=== PATIENT | female | born 2000 | race Caucasian/White ===

== ENCOUNTER 2022-01-11 13:47 | Emergency (ER) | payer BC ==
[~2022-01-11] VITALS: Ht 154.9 cm; Wt 127.0 kg
--- NOTE | 2022-01-11 14:11 | ED Abdominal Pain ---
General Chief Complaint: Abdominal/GI Problems Stated Complaint: ABD PAIN,BACK PAIN Source of Information: Patient Exam Limitations: No Limitations History of Present Illness Date Seen by Provider: January 11, 2022 Time Seen by Provider: 13:55 Initial Comments Patient is a 21-year-old female presents with midepigastric pain starting approx imately 1 hour prior to ED arrival. Pain is dull, nonradiating, nonmigratory And is moderate to severe and is worse after eating. No nausea vomiting fever chills or sweats. No constipation or diarrhea. No chest pain or shortness of breath. No urinary frequency urgency or dysuria. No other acute symptoms or complaints. Reports moderate alcohol consumption weekly. Last menstrual period was a month ago Timing/Duration: 4-6 Hours Severity/Quality: Mild, Other Location: Epigastric, Other Radiation: Other Activities at Onset: Other Modifying Factors: Improves With Other Associated Symptoms: Other Allergies and Home Medications Allergies Coded Allergies: No Known Drug Allergies (Unverified , 01/11/22) Patient Home Medication List Home Medication List Reviewed: Yes Review of Systems Review of Systems Constitutional: see HPI EENTM: See HPI Respiratory: See HPI Cardiovascular: See HPI Gastrointestinal: See HPI Genitourinary: See HPI Musculoskeletal: see HPI Skin: see HPI Psychiatric/Neurological: See HPI Endocrine: See HPI Hematologic/Lymphatic: See HPI All Other Systems Reviewed Negative Unless Noted: Yes Past Mtoevfk-Qdzgta-Scihyh Hx Patient Social History Tobacco Use?: Yes Physical Exam Vital Signs Vital Signs - First Documented 01/11/22 13:54 Temp 36.5 Pulse 84 Resp 18 B/P (MAP) 143/81 (101) Pulse Ox 98 O2 Delivery Room Air Capillary Refill : Height/Weight/BMI Height: '" Weight: lbs. oz. kg; BMI Method: General Appearance: no apparent distress HEENT: pharynx normal Respiratory: chest non-tender, lungs clear Cardiovascular: regular rate, rhythm Gastrointestinal: non tender, soft, other (Habitus limiting exam) Extremities: normal range of motion, non-tender Neurologic/Psychiatric: oriented x 3 Skin: normal color Focused Exam Sepsis Stage: Ruled Out Progress/Results/Core Measures Results/Orders Lab Results Laboratory Tests Test 01/11/22 14:00 01/11/22 14:05 Range/Units Urine Test NEGATIVE NEGATIVE White Blood Count 10.7 4.3-11.0 10^3/uL Red Blood Count 4.34 3.80-5.11 10^6/uL Hemoglobin 11.6 11.5-16.0 g/dL Hematocrit 37 35-52 % Mean Corpuscular Volume 84 80-99 fL Mean Corpuscular Hemoglobin 27 25-34 pg Mean Corpuscular Hemoglobin Concent 32 32-36 g/dL Red Cell Distribution Width 13.9 10.0-14.5 % Platelet Count 272 130-400 10^3/uL Mean Platelet Volume 9.7 9.0-12.2 fL Immature Granulocyte % (Auto) 0 % Neutrophils (%) (Auto) 69 42-75 % Lymphocytes (%) (Auto) 23 12-44 % Monocytes (%) (Auto) 7 0-12 % Eosinophils (%) (Auto) 1 0-10 % Basophils (%) (Auto) 1 0-10 % Neutrophils # (Auto) 7.5 1.8-7.8 10^3/uL Lymphocytes # (Auto) 2.4 1.0-4.0 10^3/uL Monocytes # (Auto) 0.7 0.0-1.0 10^3/uL Eosinophils # (Auto) 0.1 0.0-0.3 10^3/uL Basophils # (Auto) 0.1 0.0-0.1 10^3/uL Immature Granulocyte # (Auto) 0.0 0.0-0.1 10^3/uL Urine Color YELLOW Urine Clarity CLEAR Urine pH 7.0 5-9 Urine Specific [place] 1.025 H 1.016-1.022 Urine Protein NEGATIVE NEGATIVE Urine Glucose (UA) NEGATIVE NEGATIVE Urine Ketones NEGATIVE NEGATIVE Urine Nitrite NEGATIVE NEGATIVE Urine Bilirubin NEGATIVE NEGATIVE Urine Urobilinogen 0.2 < = 1.0 MG/DL Urine Leukocyte Esterase NEGATIVE NEGATIVE Urine RBC (Auto) NEGATIVE NEGATIVE Urine RBC 0-2 /HPF Urine WBC 2-5 /HPF Urine Squamous Epithelial Cells 5-10 /HPF Urine Crystals NONE /LPF Urine Bacteria FEW H /HPF Urine Casts NONE /LPF Urine Mucus SMALL H /LPF Urine Culture Indicated NO My Orders Orders - SAYDA DELEON DO Cbc With Automated Diff (01/11/22 13:56) Comprehensive Metabolic Panel (01/11/22 13:56) Ua Culture If Indicated (01/11/22 13:56) Hcg,Qualitative Urine (01/11/22 13:56) Lidocaine 2% Viscous 15 Ml (Xylocaine Vi (01/11/22 14:15) Antacid Suspension (Mylanta Suspension (01/11/22 14:15) Famotidine Injection (Pepcid Injection) (01/11/22 14:45) Ondansetron Injection (Zofran Injectio (01/11/22 14:45) Medications Given in ED Current Medications Medications Dose Ordered Sig/Leonarda Route Start Time Stop Time Status Last Admin Dose Admin Al Hydrox/Mg Hydrox/Simethicone 30 ml ONCE ONCE PO 01/11/22 14:15 01/11/22 14:16 DC 01/11/22 14:11 30 ML Lidocaine HCl 15 ml ONCE ONCE PO 01/11/22 14:15 01/11/22 14:16 DC 01/11/22 14:11 15 ML Vital Signs/I&O 01/11/22 13:54 Temp 36.5 Pulse 84 Resp 18 B/P (MAP) 143/81 (101) Pulse Ox 98 O2 Delivery Room Air Departure Communication (Admissions) Epigastric abdominal pain with tenderness. Significant provement with GI cocktail Pepcid and Zofran. Lab work reviewed and reassuring. Recommendations are supportive care with watchful waiting and PCP follow-up. Return precautions reviewed. Patient's verbalizes understanding and agreement with discharge instructions prior to departure. Impression Primary Impression: Midepigastric pain Additional Impression: Nausea alone Disposition: 01 HOME, SELF-CARE Condition: Stable Departure-Patient Inst. Decision time for Depature: 14:36 Referrals: LORI PEOPLES (PCP/Family) Primary Care Physician Patient Instructions: Nausea and Vomiting, Adult (DC), Abdominal Pain, Adult ED Add. Discharge Instructions: You were evaluated in the emergency department for abdominal pain and nausea. The exact cause of your symptoms has not been determined but is consistent with gastritis or inflammation of the lining of the lung. Please avoid caffeine, alcohol spicy foods and drink clear liquids only for the next 6 to 12 hours and then progressed to a bland diet as tolerated. Take newly prescribed medications as directed. Follow-up with your PCP early next week if symptoms persist. Return to the ED if new or worsening symptoms. All discharge instructions reviewed with patient and/or family. Voiced understanding. Scripts Famotidine (Pepcid) 20 Mg Tablet 20 MG PO BID, #20 TAB Prov: SAYDA DELEON DO 01/11/22 Ondansetron (Ondansetron Odt) 4 Mg Tab.rapdis 4 MG PO Q4H, #10 TAB Prov: SAYDA DELEON DO 01/11/22 SAYDA DELEON DO January 11, 2022 14:11
[2022-01-11 14:14] LABS: BASOPHILS # (AUTO) 0.1 10^3/uL (0.0-0.1); BASOPHILS % (AUTO) 1 % (0-10); EOSINOPHILS # (AUTO) 0.1 10^3/uL (0.0-0.3); EOSINOPHILS % (AUTO) 1 % (0-10); HEMATOCRIT 37 % (35-52); HEMOGLOBIN 11.6 g/dL (11.5-16.0); LYMPHOCYTES # (AUTO) 2.4 10^3/uL (1.0-4.0); LYMPHOCYTES % (AUTO) 23 % (12-44); MEAN CORPUSCULAR HEMOGLOBIN 27 pg (25-34); MEAN CORPUSCULAR HGB CONC 32 g/dL (32-36); MEAN CORPUSCULAR VOLUME 84 fL (80-99); MEAN PLATELET VOLUME 9.7 fL (9.0-12.2); MONOCYTES # (AUTO) 0.7 10^3/uL (0.0-1.0); MONOCYTES % (AUTO) 7 % (0-12); NEUTROPHILS # (AUTO) 7.5 10^3/uL (1.8-7.8); NEUTROPHILS % (AUTO) 69 % (42-75); PLATELET COUNT 272 10^3/uL (130-400); WHITE BLOOD COUNT 10.7 10^3/uL (4.3-11.0)
[2022-01-11] MEDS ORDERED: LIDOCAINE 2% VISCOUS 15 ML UDC PO ONE (14:15)
[2022-01-11] MEDS ORDERED: ANTACID SUSP 30 ML UDC (MYLANTA) PO ONE (14:15)
[2022-01-11 14:16] LABS: BILIRUBIN,URINE NEGATIVE (NEGATIVE); CLARITY,URINE CLEAR; COLOR,URINE YELLOW; GLUCOSE, URINE (UA) NEGATIVE (NEGATIVE); KETONES,URINE NEGATIVE (NEGATIVE); LEUKOCYTE ESTERASE ,URINE NEGATIVE (NEGATIVE); NITRITE,URINE NEGATIVE (NEGATIVE); PROTEIN,URINE NEGATIVE (NEGATIVE)
[2022-01-11 14:21] LABS: BACTERIA,URINE FEW /HPF; RBC,URINE 0-2 /HPF
[2022-01-11 14:35] LABS: ALBUMIN 3.8 GM/DL (3.2-4.5); BILIRUBIN,TOTAL 0.2 MG/DL (0.1-1.0); CALCIUM 9.5 MG/DL (8.5-10.1); CREATININE SERUM 0.59 MG/DL (0.60-1.30); TOTAL PROTEIN 7.9 GM/DL (6.4-8.2)
[2022-01-11] MEDS ORDERED: ONDA4TAB11 PO (14:37)
[2022-01-11] MEDS ORDERED: FAMO-119 PO (14:37)
[2022-01-11 14:43] VITALS: BP 123/64
[2022-01-11] MEDS ORDERED: FAMOTIDINE 20MG/2ML IV (PEPCID) IVP ONE (14:45)
[2022-01-11] MEDS ORDERED: ONDANSETRON 4 MG/2 ML (SDV) Z0FRAN IVP ONE (14:45)
== END 2022-01-11 14:55 | disposition home or self-care (01) ==
LOC: ER FS 13:50
DX: R10.13 Epigastric pain (principal); R11.0 Nausea; Z32.02 Encounter for pregnancy test, result negative
CPT/HCPCS: 36415; 80053; 81000; 84703; 85025